=== PATIENT | female | born 1985 | race Caucasian/White ===

== ENCOUNTER 2016-05-30 18:32 | Emergency (ER) | payer BC ==
[2016-05-30 19:33] VITALS: BP 135/85
--- NOTE | 2016-05-30 19:58 | UC ---
Throat Pain/Nasal Jose HPI - HPI Summary HPI Summary: right ear pain radiating in to right side of throat began on an airline flight 5 days ago - History of Current Complaint Chief Complaint: UCRespiratory Stated Complaint: COUGH, SORE THROAT, AND SINUS CONGESTION Time Seen by Provider: 05/30/16 19:44 Hx Obtained From: Patient Hx Last Menstrual Period: 05/06/16 ?: No Onset/Duration: Sudden Onset, Lasting Days - 5, Still Present Severity: Moderate Pain Intensity: 5 Pain Scale Used: 0-10 Numeric Cough: None - Allergies/Home Medications Allergies/Adverse Reactions: Allergies Allergy/AdvReac Type Severity Reaction Status Date / Time No Known Allergies Allergy Verified 05/30/16 19:33 Home Medications: Home Medications NK [No Home Medications Reported] 05/30/16 [History Confirmed 05/30/16] PMH/Surg Hx/FS Hx/Imm Hx Previously Healthy: No Psychological History Of: Reports: Anxiety - Surgical History Surgical History: None - Family History Known Family History: Positive: None - Social History Occupation: Unemployed Lives: With Family Alcohol Use: None Substance Use Type: None Smoking Status (MU): Never Smoked Tobacco Have You Smoked in the Last Year: No - Immunization History Most Recent Influenza Vaccination: 01/12/15 Most Recent Tetanus Shot: 03/21/15 Most Recent Pneumonia Vaccination: never Review of Systems Constitutional: Negative Skin: Negative Eyes: Negative ENT: Sore Throat, Ear Ache Respiratory: Cough Cardiovascular: Negative Gastrointestinal: Negative Genitourinary: Negative Motor: Negative Neurovascular: Negative Musculoskeletal: Negative Neurological: Negative Psychological: Negative All Other Systems Reviewed And Are Negative: Yes Physical Exam Triage Information Reviewed: Yes Appearance: Well-Appearing, No Pain Distress, Well-Nourished Vital Signs: Initial Vital Signs Temp 97.3 F 05/30/16 19:27 Pulse 158 05/30/16 19:27 Resp 20 05/30/16 19:27 BP 135/85 05/30/16 19:27 Pulse Ox 100 05/30/16 19:27 Vital Signs Reviewed: Yes Eye Exam: Normal Eyes: Positive: Conjunctiva Clear ENT Exam: Normal ENT: Positive: Hearing grossly normal, Pharynx normal, Nasal congestion, TMs normal - after cerumen removed from right ear. Negative: Nasal drainage, Tonsillar swelling, Tonsillar exudate, Trismus, Muffled/hoarse voice Dental Exam: Normal Neck exam: Normal Neck: Positive: Supple, Nontender, No Lymphadenopathy Respiratory Exam: Normal Respiratory: Positive: Chest non-tender, Lungs clear, Normal breath sounds, No respiratory distress, No accessory muscle use Cardiovascular Exam: Normal Cardiovascular: Positive: RRR, No Murmur, Pulses Normal, Brisk Capillary Refill Musculoskeletal Exam: Normal Musculoskeletal: Positive: Strength Intact, ROM Intact, No Edema Neurological Exam: Normal Neurological: Positive: Alert, Muscle Tone Normal Psychological Exam: Normal Skin Exam: Normal Diagnostics - Laboratory Diagnostic Studies Completed/Ordered: RST (-), Influenza A/B (-) Throat Pain/Nasal Course/Dx - Course Assessment/Plan: increase fluids, sudafed mucinex, cool mist humidifer, follow with pcp prn - Differential Dx/Diagnosis Differential Diagnosis/HQI/PQRI: Laryngitis, Peritonsillar Abscess, Pharyngitis , Sinusitis, URI Provider Diagnoses: URI, Eustation tube dysfunction Discharge - Discharge Plan Condition: Stable Disposition: HOME Patient Education Materials: Ibuprofen (By mouth), Pseudoephedrine (By mouth), Eustachian Tube Dysfunction (GEN) Referrals: Diane Hunter MD [Primary Care Provider] - If Needed
== END 2016-05-30 20:09 | disposition home or self-care (01) ==
LOC: UCEAST 18:32
DX: H92.01 Otalgia, right ear (principal); J06.9 Acute upper respiratory infection, unspecified; H69.91 Unspecified Eustachian tube disorder, right ear
CPT/HCPCS: 87502; 87651; 99211; G0463

== ENCOUNTER 2016-12-08 10:17 | Emergency (ER) | payer BC ==
[2016-12-08 10:31] VITALS: BP 145/95
--- NOTE | 2016-12-08 11:28 | UC ---
UC General HPI - HPI Summary HPI Summary: Patient presents to the clinic with complaints of generalized fatigue, malaise with reported tactile fever and chills. She complains of scratchy sore throat, and bilateral ear pain. She feels like her ears are plugged. She states that she has wax in her ears, and has to have them flushed out at times. She denies abdominal pain, nausea, vomiting or diarrhea. She reports ill contact with her child last week who had a virus. - History of Current Complaint Chief Complaint: UCEar Stated Complaint: EAR PAIN Time Seen by Provider: 12/08/16 10:54 Hx Obtained From: Patient Hx Last Menstrual Period: 12/08/16 Onset/Duration: Sudden Onset, Lasting Days Timing: Constant Onset Severity: Mild Current Severity: Mild Associated Signs & Symptoms: Positive: Fever Similar Episode/Dx as: cerumen impaction - Allergy/Home Medications Allergies/Adverse Reactions: Allergies Allergy/AdvReac Type Severity Reaction Status Date / Time No Known Allergies Allergy Verified 05/30/16 19:33 PMH/Surg Hx/FS Hx/Imm Hx Previously Healthy: Yes - Surgical History Surgical History: None - Family History Known Family History: Positive: None - Social History Occupation: Employed Full-time Lives: With Family Alcohol Use: None Substance Use Type: None Smoking Status (MU): Never Smoked Tobacco Have You Smoked in the Last Year: No - Immunization History Most Recent Influenza Vaccination: 01/12/15 Most Recent Tetanus Shot: 03/21/15 Most Recent Pneumonia Vaccination: never Review of Systems Constitutional: Fever, Chills, Fatigue ENT: Sore Throat, Ear Ache Cardiovascular: Negative Gastrointestinal: Negative Genitourinary: Negative Motor: Negative All Other Systems Reviewed And Are Negative: Yes Physical Exam Triage Information Reviewed: Yes Appearance: Well-Appearing Vital Signs: Initial Vital Signs Temp 100.8 F 12/08/16 10:27 Pulse 148 12/08/16 10:27 Resp 18 12/08/16 10:27 BP 145/95 12/08/16 10:27 Pulse Ox 100 12/08/16 10:27 Vital Signs Reviewed: Yes Eye Exam: Normal ENT: Positive: Other: - bilateral cerumen visualized, soft brown. Neck exam: Normal Respiratory Exam: Normal Cardiovascular Exam: Normal Skin Exam: Normal Course/Dx - Course Course Of Treatment: Patient presents with complaints of one day onset fatigue, and malaise, with reported fever, and chills. VS were normal. There was cerumen in both canals, and the ear were lavaged with excellent results and reported immediate improvement with her hearing back to normal. Other symptoms are consistent with viral syndrome for which conservative measure are to be imployed. She was encouraged to rest, push fluids, and take tylenol, and or advil as directed. If for any reason her symtpoms do not improve as anticipated she is to follow up with her PCP, or return for re-evalaution. she vervbalized understanding and was in agreement with the discharge plan. - Differential Dx - Multi-Symptom Differential Diagnoses: Other - viral syndrome cerumen impaction ear lavage Provider Diagnoses: viral syndrome. ceruemen impaction Discharge - Discharge Plan Condition: Stable Disposition: HOME Patient Education Materials: Cerumen Impaction (ED), Viral Syndrome (ED) Referrals: Diane Hunter MD [Primary Care Provider] -
== END 2016-12-08 11:32 | disposition home or self-care (01) ==
LOC: UCEAST 10:17
DX: H61.23 Impacted cerumen, bilateral (principal); B34.9 Viral infection, unspecified
CPT/HCPCS: 99213; G0463

== ENCOUNTER 2017-04-30 12:12 | Emergency (ER) | payer BC ==
[2017-04-30 12:40] VITALS: BP 143/82
--- NOTE | 2017-04-30 13:55 | UC ---
Ear Complaint HPI - HPI Summary HPI Summary: ONSET OF LEFT EAR PAIN AND DECREASED HEARING THIS MORNING. PT PRODUCES A LOT OF EAR WAX SO PUT DEBROX IN LESS THAN 2 HOURS AGO BUT DID NOT HELP SO HERE FOR EVAL. ALSO HAS HAD 4 DAYS OF COUGH, CONGESTION, SINUS PRESSURE. AND DAUGHTER BOTH HAVE RSV. 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 - Hx Last Menstrual Period: 04/14/17 Onset/Duration: Gradual Onset, Lasting Hours, Still Present Severity Initially: Moderate Severity Currently: Moderate Pain Intensity: 2 Pain Scale Used: 0-10 Numeric Aggravating Factors: Nothing Alleviating Factors: Nothing Associated Signs/Symptoms: Positive: Hearing Loss, URI Symptoms - Allergies/Home Medications Allergies/Adverse Reactions: Allergies Allergy/AdvReac Type Severity Reaction Status Date / Time No Known Allergies Allergy Verified 04/30/17 12:40 Home Medications: Home Medications Dextromethorphan-Phenylephrine [Day-Time Cold/Flu Relief 10-5-325 mg/15Ml] 1 liq PO DAILY PRN 04/30/17 [History Confirmed 04/30/17] GuaiFENesin DM* [Robitussin DM*] 10 ml PO Q6H PRN 04/30/17 [History Confirmed ] Loratadine [Claritin 10 MG CAP] 10 mg PO DAILY 04/30/17 [History Confirmed 04/30] PMH/Surg Hx/FS Hx/Imm Hx Previously Healthy: Yes - Surgical History Surgical History: None - Family History Known Family History: Positive: Hypertension - Social History Alcohol Use: None Substance Use Type: None Smoking Status (MU): Never Smoked Tobacco Have You Smoked in the Last Year: No - Immunization History Most Recent Influenza Vaccination: 01/12/15 Most Recent Tetanus Shot: 03/21/15 Most Recent Pneumonia Vaccination: never Review of Systems Constitutional: Fatigue ENT: Ear Ache, Nasal Discharge Respiratory: Cough Cardiovascular: Negative Gastrointestinal: Negative All Other Systems Reviewed And Are Negative: Yes Physical Exam Triage Information Reviewed: Yes Appearance: Well-Appearing, No Pain Distress, Well-Nourished Vital Signs: Initial Vital Signs Temp 98.5 F 04/30/17 12:35 Pulse 105 04/30/17 12:35 Resp 16 04/30/17 12:35 BP 143/82 04/30/17 12:35 Pulse Ox 100 04/30/17 12:35 Vital Signs Reviewed: Yes Eyes: Positive: Conjunctiva Clear ENT: Positive: Hearing grossly normal, Pharynx normal, Nasal congestion, Other - BILAT EACS IMPACTED WITH CERUMEN. AFTER CURETTAGE - RIGHT TM NORMAL. LEFT TM ERYTHEMATOUS AND DULL. Neck: Positive: Supple, Nontender, No Lymphadenopathy Respiratory Exam: Normal Cardiovascular: Positive: Tachycardia Abdomen Description: Positive: Soft Musculoskeletal: Positive: No Edema Neurological: Positive: Alert Psychological: Positive: Age Appropriate Behavior Skin: Negative: rashes Ear Complaint Course/Dx - Course Course Of Treatment: EARS IRRIGATED BY RN AND THEN CURETTED SUCCESSFULLY BY MD. WILL TREAT LEFT AOM WITH AMOX. F/U NEEDED. - Differential Dx/Diagnosis Provider Diagnoses: 1. LEFT AOM. 2. BILATERAL CERUMEN IMPACTION Discharge - Discharge Plan Condition: Stable Disposition: HOME Prescriptions: Amoxicillin PO (*) [Amoxicillin 500 MG CAP*] 1,000 mg PO Q12H #40 cap Patient Education Materials: Cerumen Impaction (ED), Ear Infection (ED) Referrals: Diane Hunter MD [Primary Care Provider] - Additional Instructions: YOUR EAR CANALS ARE NOW CLEAR OF WAX. ONCE YOUR INFECTION HAS RESOLVED YOU MAY USE A QTIP TO GENTLY AND CAREFULLY CLEAN YOUR EARS EVERY COUPLE OF DAYS TO KEEP WAX FROM BUILDING UP. DO NOT INSERT THE QTIP ANY FURTHER THAN THE DEPTH OF THE COTTON SWAB. FOR MAINTENANCE, PUT SEVERAL DROPS OF OIL (MINERAL OIL, VEGETABLE OIL, OLIVE OIL , CANOLA OIL...) IN EACH EAR ONCE WEEKLY. THIS WILL HELP KEEP THE WAX SOFT AND WILL HOPEFULLY PREVENT BUILDUP IN THE FUTURE. IF CERUMEN BUILDUP STILL OCCURS IT WILL LIKELY BE EASIER TO IRRIGATE. CALL THE NUMBER BELOW FOR ASSISTANCE IN ESTABLISHING WITH A PCP An additional resource available to assist in finding the appropriate physician for your health care needs is the [facility] ([facility]). You may contact them by calling [phone].
== END 2017-04-30 15:04 | disposition home or self-care (01) ==
LOC: UCEAST 12:12
DX: H66.92 Otitis media, unspecified, left ear (principal); H61.23 Impacted cerumen, bilateral
CPT/HCPCS: 99213; G0463

== ENCOUNTER 2017-12-11 12:59 | Emergency (ER) | payer BC ==
[2017-12-11 13:11] VITALS: BP 147/66
--- NOTE | 2017-12-11 13:24 | UC ---
Ear Complaint HPI - HPI Summary HPI Summary: PATIENT HAD A URI 2 WEEKS AGO WHICH SHE RECOVERED FROM BUT HAS PERSISTENT RIGHT EAR DISCOMFORT AND MUTED HEARING. - History of Current Complaint Chief Complaint: UCEar Stated Complaint: EAR COMPLAINT Time Seen by Provider: 12/11/17 13:08 Hx Obtained From: Patient Hx Last Menstrual Period: NOV 26 Onset/Duration: Gradual Onset, Lasting Days, Still Present Severity Initially: Mild Severity Currently: Mild Pain Intensity: 2 Pain Scale Used: 0-10 Numeric Aggravating Factors: Nothing Alleviating Factors: Nothing Associated Signs/Symptoms: Positive: Hearing Loss, URI Symptoms. Negative: Discharge, Foreign Body Sensation - Allergies/Home Medications Allergies/Adverse Reactions: Allergies Allergy/AdvReac Type Severity Reaction Status Date / Time No Known Allergies Allergy Verified 04/30/17 12:40 Home Medications: Home Medications NK [No Home Medications Reported] 12/11/17 [History Confirmed 12/11/17] PMH/Surg Hx/FS Hx/Imm Hx Previously Healthy: Yes - Surgical History Surgical History: None - Family History Known Family History: Positive: Hypertension - Social History Alcohol Use: None Substance Use Type: None Smoking Status (MU): Never Smoked Tobacco Have You Smoked in the Last Year: No - Immunization History Most Recent Influenza Vaccination: 01/12/15 Most Recent Tetanus Shot: 03/21/15 Most Recent Pneumonia Vaccination: never Review of Systems Constitutional: Negative ENT: Ear Ache Respiratory: Negative Cardiovascular: Negative Gastrointestinal: Negative All Other Systems Reviewed And Are Negative: Yes Physical Exam Triage Information Reviewed: Yes Appearance: Well-Appearing, No Pain Distress, Well-Nourished Vital Signs: Initial Vital Signs Temp 98.9 F 12/11/17 13:06 Pulse 92 12/11/17 13:06 Resp 17 12/11/17 13:06 BP 147/66 12/11/17 13:06 Pulse Ox 100 12/11/17 13:06 Vital Signs Reviewed: Yes Eyes: Positive: Conjunctiva Clear ENT: Positive: Hearing grossly normal, Pharynx normal, TMs normal, Other - CERUMEN IMPACTION RIGHT EAC Neck: Positive: Supple Respiratory Exam: Normal Cardiovascular Exam: Normal Abdomen Description: Positive: Soft Musculoskeletal: Positive: No Edema Neurological: Positive: Alert Psychological: Positive: Normal Response To Family, Age Appropriate Behavior Skin: Negative: rashes Ear Complaint Course/Dx - Course Course Of Treatment: RIGHT EAR IRRIGATED BY RN. TM VISUALIZED AND NORMAL. PT FEELS BETTER. NO MEDS INDICATED. - Differential Dx/Diagnosis Provider Diagnoses: RIGHT EAR CERUMEN IMPACTION Discharge - Sign-Out/Discharge Documenting (check all that apply): Patient Departure All imaging exams completed and their final reports reviewed: No Studies - Discharge Plan Condition: Stable Disposition: HOME Patient Education Materials: Cerumen Impaction (ED) Referrals: Diane Hunter MD [Primary Care Provider] - If Needed Additional Instructions: NO EAR INFECTION ON EXAM TODAY. NOW THAT YOUR EAR CANALS ARE CLEAR OF WAX YOU MAY USE A QTIP TO GENTLY AND CAREFULLY CLEAN YOUR EARS ONCE OR TWICE A WEEK TO KEEP WAX FROM BUILDING UP. DO NOT INSERT THE QTIP ANY FURTHER THAN THE DEPTH OF THE COTTON SWAB. - Billing Disposition and Condition Condition: STABLE Disposition: Home
== END 2017-12-11 14:10 | disposition home or self-care (01) ==
LOC: UCEAST 12:59
DX: H61.21 Impacted cerumen, right ear (principal); Z86.19 Personal history of other infectious and parasitic diseases
CPT/HCPCS: 99212; G0463

== ENCOUNTER 2018-10-10 10:27 | Emergency (ER) | payer BC, OTHER ==
[2018-10-10 10:40] VITALS: BP 142/83
--- NOTE | 2018-10-10 12:11 | UC ---
UC General HPI - HPI Summary HPI Summary: 33-year-old female who is here today because of anxiety. She states since she was in 2014 she has had some periods of anxiety. She had a normal vaginal delivery without complications and the child is 3 years old with no problems. She states since then she will have times when she just feels very anxious and worried about normal life events. She states over the past month she feels like she's been having more problems with panic attacks although no real source for those attacks. She has a healthy marriage and a good relation with her she states. She does not go to her [facility] regularly because of fear that the doctor might find something wrong so she just doesn't go. She states she gets anxious just being in a doctor's office. She denies any recent illness. - History of Current Complaint Chief Complaint: UCPsych Stated Complaint: ANXIETY ISSUE Time Seen by Provider: 10/10/18 11:39 Hx Obtained From: Patient - I spoke with the patient by herself while her waited in the waiting room. Hx Last Menstrual Period: NOV 26 Onset/Duration: Gradual Onset, Other - Has had intermittent episodes of anxiety since 2014. Onset Severity: Mild Current Severity: Mild Pain Intensity: 0 - Allergy/Home Medications Allergies/Adverse Reactions: Allergies Allergy/AdvReac Type Severity Reaction Status Date / Time No Known Allergies Allergy Verified 10/10/18 10:40 PMH/Surg Hx/FS Hx/Imm Hx Previously Healthy: Yes - she states her mother has a history of anxiety. - Surgical History Surgical History: None - Family History Known Family History: Positive: Hypertension - Social History Lives: With Family Alcohol Use: None Substance Use Type: None Smoking Status (MU): Never Smoked Tobacco Have You Smoked in the Last Year: No - Immunization History Most Recent Influenza Vaccination: 01/12/15 Most Recent Tetanus Shot: 03/21/15 Most Recent Pneumonia Vaccination: never Review of Systems All Other Systems Reviewed And Are Negative: Yes Psychological: Positive: Anxious Is Patient Immunocompromised?: No Physical Exam Triage Information Reviewed: Yes Appearance: Well-Appearing, No Pain Distress, Well-Nourished Vital Signs: Initial Vital Signs Temp 98.7 F 10/10/18 10:33 Pulse 120 10/10/18 10:33 Resp 24 10/10/18 10:33 BP 142/83 10/10/18 10:33 Pulse Ox 100 10/10/18 10:33 Vital Signs Reviewed: Yes Eyes: Positive: Conjunctiva Clear - PERRLA, EOMI ENT: Positive: Hearing grossly normal, Pharynx normal, TMs normal, Uvula midline Neck: Positive: Supple, Nontender, No Lymphadenopathy Respiratory: Positive: Lungs clear, Normal breath sounds, No respiratory distress, No accessory muscle use Cardiovascular: Positive: RRR, No Murmur, Pulses Normal, Brisk Capillary Refill Abdomen Description: Positive: Nontender, No Organomegaly, Soft. Negative: CVA Tenderness (R), CVA Tenderness (L) Bowel Sounds: Positive: Present Musculoskeletal: Positive: Strength Intact, ROM Intact - Good peripheral pulses neuro sensation capillary refill, reflexes +2 at the knee, full range of motion , good arm and leg strength against resistance. Neurological: Positive: Alert, Muscle Tone Normal Psychological: Positive: Normal Response To Family, Other: - Patient seemed very calm here well and was talking with her. I think she needed more reassurance that many of the worries that she has are fairly normal. Skin Exam: Normal Course/Dx - Course Course Of Treatment: Patient has been comfortable here. She needed reassurance that many of the worrying that she does about normal life events is normal. She states she has no primary care provider therefore I gave her the [facility] pamphlet to follow-up there and they will be able to find her a primary care provider who can address her anxiety. At this point in time she is very calm with no complaints. She states she mostly came because she thought she could have a physical exam and then that would allay her fears. I did stress the importance of regular [facility] appointments and Pap smears as well as establishing care with a primary care provider. She is agreeable to this. She is not suicidal nor she homicidal. She states she is very happy in her marriage and with her child. She has a brother visiting from [place] for about 3 weeks. The patient seemed very reassured and happy with the talk we had and the information given. - Diagnoses Provider Diagnosis: Anxiety about health Discharge - Sign-Out/Discharge Documenting (check all that apply): Patient Departure All imaging exams completed and their final reports reviewed: No Studies - Discharge Plan Condition: Good Disposition: HOME Patient Education Materials: Anxiety (ED) Referrals: [facility] [Outside] Diane Hunter MD [Primary Care Provider] - Additional Instructions: Call the [facility] clinic today to make an appointment to establish care with a primary care provider. - Billing Disposition and Condition Condition: GOOD Disposition: Home
== END 2018-10-10 12:15 | disposition home or self-care (01) ==
LOC: UCEAST 10:27
DX: F41.9 Anxiety disorder, unspecified (principal)
CPT/HCPCS: 99211; G0463

== ENCOUNTER 2019-03-11 20:06 | Emergency (ER) | payer OTHER ==
[2019-03-11 20:24] VITALS: BP 176/98
--- NOTE | 2019-03-11 20:31 | UC ---
Dizzy HPI HPI Summary: AFTER GETTING HOME FROM WORK THIS AFTERNOON PATIENT SUDDENLY FELT VERY DIZZY, NAUSEATED AND INTERMITTENTLY SHORT OF BREATH. FELT SHE COULDN'T EVEN WALK SHE WAS FEELING SO DIZZY. SHE DOES HAVE SOME UNDERLYING ANXIETY AND IS CURRENTLY BEING TREATED FOR HYPERTHYROIDISM WITH METHIMAZOLE AND A BETA RODRIGO. 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 - Hx Last Menstrual Period: NOV 26 Onset/Duration: Sudden Onset, Lasting Hours, Still Present Timing: Constant Severity Initially: Moderate Severity Currently: Moderate Pain Intensity: 0 Pain Scale Used: 0-10 Numeric Character: Lightheaded, Weak, Dizzy Aggravating Factor(s): Nothing Alleviating Factor(s): Nothing Associated Signs And Symptoms: Positive: Nausea, SOB, Unsteady Gait - Allergies/Home Medications Allergies/Adverse Reactions: Allergies Allergy/AdvReac Type Severity Reaction Status Date / Time No Known Allergies Allergy Verified 10/10/18 10:40 Home Medications: Home Medications Atenolol TAB* [Tenormin TAB* 25 MG] 1 tab PO DAILY 03/11/19 [History Confirmed 03/11/19] methIMAzole [Methimazole] 40 mg PO DAILY 03/11/19 [History Confirmed 03/11/19] PMH/Surg Hx/FS Hx/Imm Hx Endocrine History: Hyperthyroidism - Surgical History Surgical History: None - Family History Known Family History: Positive: Hypertension - Social History Alcohol Use: None Substance Use Type: None Smoking Status (MU): Never Smoked Tobacco Have You Smoked in the Last Year: No - Immunization History Most Recent Influenza Vaccination: 01/12/15 Most Recent Tetanus Shot: 03/21/15 Most Recent Pneumonia Vaccination: never Review of Systems All Other Systems Reviewed And Are Negative: Yes Constitutional: Positive: Fatigue Respiratory: Positive: Shortness Of Breath Cardiovascular: Positive: Negative Gastrointestinal: Positive: Nausea Neurological: Positive: Other - DIZZY Physical Exam Triage Information Reviewed: Yes Appearance: No Pain Distress, Well-Nourished, Other: - SEEMS SEDATED Vital Signs: Initial Vital Signs Temp 98 F 03/11/19 20:21 Pulse 100 03/11/19 20:21 Resp 18 03/11/19 20:21 BP 176/98 03/11/19 20:21 Pulse Ox 100 03/11/19 20:21 Vital Signs Reviewed: Yes Eyes: Positive: Conjunctiva Clear ENT: Positive: Hearing grossly normal Neck: Positive: Supple Respiratory Exam: Normal Cardiovascular Exam: Normal Abdomen Description: Positive: Nontender, Soft Musculoskeletal: Positive: No Edema Neurological: Positive: Alert, Fatigued Psychological: Positive: Age Appropriate Behavior Skin: Negative: Rashes Diagnostics - EKG Cardiac Rate: NL - 69BPM Cardiac Rhythm: Sinus: Normal Ectopy: None ST Segment: Normal Dizzy Course/Dx - Course Course Of Treatment: PATIENT REQUIRES A HIGHER LEVEL OF SERVICE THAN WHAT IS AVAILABLE IN THE URGENT CARE. TO [facility] BY AMBULANCE. - Differential Dx/Diagnosis Provider Diagnosis: Dizziness - Physician Notifications Discussed Patient Care With: Sara George - TO [facility] BY AMBULANCE Time Discussed With Above Provider: 20:30 Discharge ED - Sign-Out/Discharge Documenting (check all that apply): Patient Departure All imaging exams completed and their final reports reviewed: No Studies - Discharge Plan Condition: Stable Disposition: TRANS HIGHER LVL OF CARE FAC Patient Education Materials: Dizziness (ED) Referrals: Diane Hunter MD [Primary Care Provider] - - Billing Disposition and Condition Condition: STABLE Disposition: Trans Higher Lvl of Care Fac
== END 2019-03-11 20:50 | disposition short-term general hospital (02) ==
LOC: UCEAST 20:06
DX: R42 Dizziness and giddiness (principal); R11.0 Nausea; R06.02 Shortness of breath; F41.9 Anxiety disorder, unspecified; E05.90 Thyrotoxicosis, unspecified without thyrotoxic crisis or storm; Z79.899 Other long term (current) drug therapy
CPT/HCPCS: 93005; 99213; G0463

== ENCOUNTER 2019-03-11 21:09 | Emergency (ER) | payer OTHER ==
[2019-03-11] MEDS ORDERED: NS 0.9% 1000 ML** 1,000 ML IV ONE (21:18)
[2019-03-11] MEDS ORDERED: Ondansetron INJ* 2 MG/ML VIAL IV ONE (21:18)
[2019-03-11 21:38] LABS: INR 1.09 (0.82-1.09)
[2019-03-11 21:47] LABS: Alcohol < 10 mg/dL (<10)
[2019-03-11 21:48] LABS: ALT 17 U/L (7-52); AST 17 U/L (13-39); Albumin/Globulin Ratio 1.1 (1-3); Alkaline Phosphatase 84 U/L (34-104); Anion Gap 8 mmol/L (2-11); BUN/Creatinine Ratio 11.1 (8-20); Blood Urea Nitrogen 7 mg/dL (6-24); CO2 Carbon Dioxide 21 mmol/L (22-32); Calcium 8.6 mg/dL (8.6-10.3); Chloride 108 mmol/L (101-111); EGFR African American 130.1 (>60); EGFR Non-African American 107.5 (>60); Globulin 3.7 g/dL (2-4); Glucose 161 mg/dL (70-100); Magnesium 1.9 mg/dL (1.9-2.7); Potassium 3.4 mmol/L (3.5-5.0); Sodium 137 mmol/L (135-145); Total Protein 7.7 g/dL (6.4-8.9)
[2019-03-11 21:50] LABS: ABS Basophils 0.1 10^3/ul (0-0.2); ABS Lymphocytes 2.2 10^3/ul (1.0-4.8); ABS Monocytes 0.6 10^3/ul (0-0.8); Eosinophil % 0.3 %; Hematocrit 34 % (35-47); Hemoglobin 11.7 g/dL (12.0-16.0); Lymphocyte % 20.6 %; Mean Corpuscular HGB Conc 34 g/dL (31-36); Mean Corpuscular Hemoglobin 26 pg (27-31); Mean Corpuscular Volume 76 fL (80-97); Platelet Count 280 10^3/uL (150-450); Red Blood Count 4.51 10^6 /uL (3.70-4.87); Red Cell Distribution Width 15 % (10-15); White Blood Count 10.9 10^3/uL (3.5-10.8)
[2019-03-11 21:51] LABS: Urine Appearance Clear; Urine Bilirubin Negative (Negative); Urine Blood 1+ (Negative); Urine Color Straw; Urine Glucose Negative (Negative); Urine Ketones Negative (Negative); Urine Nitrite Negative (Negative); Urine Protein Negative (Negative); Urine Specific Gravity 1.002 (1.010-1.030); Urine Urobilinogen Negative (Negative)
[2019-03-11 21:54] LABS: HCG Pregnancy < 0.60 mIU/mL
[2019-03-11 21:58] LABS: Urine Bacteria 1+ (Absent); Urine Red Blood Cell Trace(0-2/hpf) (Absent); Urine Squamous Epithelial Cell Present (Absent); Urine White Blood Cell Trace(0-5/hpf) (Absent)
[2019-03-11 22:03] LABS: TSH (Thyroid Stimulating Horm) 0.01 mcIU/mL (0.34-5.60)
--- NOTE | 2019-03-11 22:09 | ED ---
Dizziness - HPI Summary HPI Summary: Pt is a 34 y/o F presenting to the ED with a chief complaint of dizziness. She states she has hyperthyroidism and has been taking Atenolol for these types of spells. She had dizziness onset tonight, took Atenolol, rested for 30 minutes, and the dizziness was still present. Her BP was elevated, and the pt became very anxious and slightly SOB. They went to . She denies fever or dec. appetite. - History Of Current Complaint Chief Complaint: EDDizziness Stated Complaint: DIZZINESS/SOB PER EMS Time Seen by Provider: 03/11/19 21:17 Hx Obtained From: Patient Onset/Duration: Still Present, Gradually Timing: Hours Severity Initially: Moderate Severity Currently: Mild Character: Lightheaded, Dizzy Aggravating Factor(s): Nothing Alleviating Factor(s): Nothing Associated Signs And Symptoms: Positive: SOB, Other: - htn, anxiety. Negative: Fever - Allergies/Home Medications Allergies/Adverse Reactions: Allergies Allergy/AdvReac Type Severity Reaction Status Date / Time No Known Allergies Allergy Verified 10/10/18 10:40 Home Medications: Home Medications Methimazole TAB* [Tapazole TAB*] 40 mg PO DAILY 03/11/19 [History Confirmed 02/17] PMH/Surg Hx/FS Hx/Imm Hx Previously Healthy: Yes Endocrine/Hematology History: Reports: Hx Thyroid Disease - hyperthyroid Cardiovascular History: Denies: Hx Hypertension Respiratory History: Denies: Hx Chronic Obstructive Pulmonary Disease (COPD) GI History: Denies: Hx Ulcer Psychiatric History: Reports: Hx Anxiety Infectious Disease History: No Infectious Disease History: Denies: Hx Human Immunodeficiency Virus (HIV), Traveled Outside the [place] in Last 30 Days - Family History Known Family History: Positive: Hypertension - Social History Alcohol Use: None Hx Substance Use: No Substance Use Type: Reports: None Hx Tobacco Use: No Smoking Status (MU): Never Smoked Tobacco Have You Smoked in the Last Year: No Review of Systems - ROS Summary Review of Systems Summary: Home Medications Medication Instructions Recorded Confirmed Type Atenolol TAB* [Tenormin TAB* 25 MG] 25 mg PO DAILY 03/11/19 03/11/19 History Methimazole TAB* [Tapazole TAB*] 40 mg PO DAILY 03/11/19 03/11/19 History Constitutional: Other - HTN Negative: Fever, Other - dec. appetite Positive: Shortness Of Breath Neurological: Other - dizziness Positive: Anxious All Other Systems Reviewed And Are Negative: Yes Physical Exam - Summary Physical Exam Summary: General: Obese female. No acute distress. HEENT: Normocephalic, Atraumatic. Eyes: Conjuctiva normal, PERRL. Oropharynx: Clear, mucous membranes moist, (-) exudates. Neck: Soft, FROM, (-) lymphadenopathy, (-) thyromegaly, (-) JVD. Cardiovascular: Normal sinus rhythm, (-) murmur. Lungs: Clear to auscultation bilaterally (-) wheezes, (-) rales, (-) rhonchi. Abdomen: Soft, non-tender, non-distended, (-) organomegaly, normal bowel sounds. Back: (-) CVA tenderness Extremities: No edema. Skin: Warm, dry, (-) rash. Neuro: Alert and oriented x3, no focal deficits. Psychiatric: Mildly anxious appearing Triage Information Reviewed: Yes Vital Signs On Initial Exam: Initial Vitals Temp Pulse Resp BP Pulse Ox 99.4 F 64 18 131/85 100 03/11/19 21:17 03/11/19 21:17 03/11/19 21:17 03/11/19 21:17 03/11/19 21:17 Vital Signs Reviewed: Yes Procedures - Sedation Patient Received Moderate/Deep Sedation with Procedure: No Diagnostics - Vital Signs Vital Signs Temp Pulse Resp BP Pulse Ox 03/11/19 21:17 99.4 F 64 18 131/85 100 - Laboratory Lab Results: Lab Results 03/11/19 03/11/19 03/11/19 Range/Units 20:40 20:40 21:35 WBC (3.5-10.8) 10^3/uL RBC (3.70-4.87) 10^6 /uL Hgb (12.0-16.0) g/dL Hct (35-47) % MCV (80-97) fL MCH (27-31) pg MCHC (31-36) g/dL RDW (10-15) % Plt Count (150-450) 10^3/uL MPV (7.4-10.4) fL Neut % (Auto) % Lymph % (Auto) % [place] % (Auto) % Eos % (Auto) % Baso % (Auto) % Absolute Neuts (auto) (1.5-7.7) 10^3/ul Absolute Lymphs (auto) (1.0-4.8) 10^3/ul Absolute Monos (auto) (0-0.8) 10^3/ul Absolute Eos (auto) (0-0.6) 10^3/ul Absolute Basos (auto) (0-0.2) 10^3/ul Absolute Nucleated RBC 10^3/ul Nucleated RBC % INR (Anticoag Therapy) 1.09 (0.82-1.09) Sodium 137 (135-145) mmol/L Potassium 3.4 L (3.5-5.0) mmol/L Chloride 108 (101-111) mmol/L Carbon Dioxide 21 L (22-32) mmol/L Anion Gap 8 (2-11) mmol/L BUN 7 (6-24) mg/dL Creatinine 0.63 (0.51-0.95) mg/dL Est GFR ( Amer) 130.1 (>60) Est GFR (Non-Af Amer) 107.5 (>60) BUN/Creatinine Ratio 11.1 (8-20) Glucose 161 H (70-100) mg/dL Calcium 8.6 (8.6-10.3) mg/dL Magnesium 1.9 (1.9-2.7) mg/dL Total Bilirubin 0.40 (0.2-1.0) mg/dL AST 17 (13-39) U/L ALT 17 (7-52) U/L Alkaline Phosphatase 84 (34-104) U/L Troponin I 0.00 (<0.03) ng/mL Total Protein 7.7 (6.4-8.9) g/dL Albumin 4.0 (3.2-5.2) g/dL Globulin 3.7 (2-4) g/dL Albumin/Globulin Ratio 1.1 (1-3) TSH 0.01 L (0.34-5.60) mcIU/mL Beta HCG, Quant < 0.60 mIU/mL Urine Color Straw Urine Appearance Clear Urine pH 6.0 (5-9) Ur Specific [place] 1.002 L (1.010-1.030) Urine Protein Negative (Negative) Urine Ketones Negative (Negative) Urine Blood 1+ A (Negative) Urine Nitrate Negative (Negative) Urine Bilirubin Negative (Negative) Urine Urobilinogen Negative (Negative) Ur Leukocyte Esterase Trace A (Negative) Urine WBC (Auto) Trace(0-5/hpf) (Absent) Urine RBC (Auto) Trace(0-2/hpf) (Absent) Ur Squamous Epith Cells Present A (Absent) Urine Bacteria 1+ A (Absent) Urine Glucose Negative (Negative) Serum Alcohol < 10 (<10) mg/dL 03/11/19 Range/Units 21:45 WBC 10.9 H (3.5-10.8) 10^3/uL RBC 4.51 (3.70-4.87) 10^6 /uL Hgb 11.7 L (12.0-16.0) g/dL Hct 34 L (35-47) % MCV 76 L (80-97) fL MCH 26 L (27-31) pg MCHC 34 (31-36) g/dL RDW 15 (10-15) % Plt Count 280 (150-450) 10^3/uL MPV 9.0 (7.4-10.4) fL Neut % (Auto) 73.1 % Lymph % (Auto) 20.6 % [place] % (Auto) 5.5 % Eos % (Auto) 0.3 % Baso % (Auto) 0.5 % Absolute Neuts (auto) 8.0 H (1.5-7.7) 10^3/ul Absolute Lymphs (auto) 2.2 (1.0-4.8) 10^3/ul Absolute Monos (auto) 0.6 (0-0.8) 10^3/ul Absolute Eos (auto) 0.0 (0-0.6) 10^3/ul Absolute Basos (auto) 0.1 (0-0.2) 10^3/ul Absolute Nucleated RBC 0.0 10^3/ul Nucleated RBC % 0.0 INR (Anticoag Therapy) (0.82-1.09) Sodium (135-145) mmol/L Potassium (3.5-5.0) mmol/L Chloride (101-111) mmol/L Carbon Dioxide (22-32) mmol/L Anion Gap (2-11) mmol/L BUN (6-24) mg/dL Creatinine (0.51-0.95) mg/dL Est GFR ( Amer) (>60) Est GFR (Non-Af Amer) (>60) BUN/Creatinine Ratio (8-20) Glucose (70-100) mg/dL Calcium (8.6-10.3) mg/dL Magnesium (1.9-2.7) mg/dL Total Bilirubin (0.2-1.0) mg/dL AST (13-39) U/L ALT (7-52) U/L Alkaline Phosphatase (34-104) U/L Troponin I (<0.03) ng/mL Total Protein (6.4-8.9) g/dL Albumin (3.2-5.2) g/dL Globulin (2-4) g/dL Albumin/Globulin Ratio (1-3) TSH (0.34-5.60) mcIU/mL Beta HCG, Quant mIU/mL Urine Color Urine Appearance Urine pH (5-9) Ur Specific Winston (1.010-1.030) Urine Protein (Negative) Urine Ketones (Negative) Urine Blood (Negative) Urine Nitrate (Negative) Urine Bilirubin (Negative) Urine Urobilinogen (Negative) Ur Leukocyte Esterase (Negative) Urine WBC (Auto) (Absent) Urine RBC (Auto) (Absent) Ur Squamous Epith Cells (Absent) Urine Bacteria (Absent) Urine Glucose (Negative) Serum Alcohol (<10) mg/dL Result Diagrams: 03/11/19 21:45 03/11/19 20:40 Lab Statement: Any lab studies that have been ordered have been reviewed, and results considered in the medical decision making process. - EKG 2123 Cardiac Rate: NL - 61bpm EKG Rhythm: Sinus Rhythm ST Segment: Normal Ectopy: None Summary of EKG Findings: EKG at 2123 reveals normal sinus rhythm with rate of 61 BPM, no acute changes, no ischemic changes. This EKG was reviewed and interpreted by Dr. Shane. Re-Evaluation - Re-Evaluation 1st re-eval Re-Evaluation Time: 22:37 Change: Improved Comment: I have discussed results with the patient and dizziness is resolved. Discussed symptoms that warrant immediate return to ED. Dizzy Course/Dx - Course Course Of Treatment: 34 y/o F presents by ambulance from urgent care w/ dizziness. Pt with significant dizziness today not relieved by rest. Recently dx ed with hyperthyroidism, started on Atenolol. Pt took an extra atenolol tonight [employer]. Given 25mg Atenolol, nml saline, 4mg Zofran, and 40mg Methimazole w / significant improvement in sx. Workup essentially negative aside from low TSH. Pt d/nelly home. F/u with PCP for new or worsening sx. - Diagnoses Provider Diagnoses: Dizziness Discharge ED - Sign-Out/Discharge Documenting (check all that apply): Patient Departure - Discharge Plan Condition: Stable Disposition: HOME Patient Education Materials: Dizziness (ED) Referrals: Diane Hunter MD [Primary Care Provider] - Additional Instructions: Please follow up with your primary care physician within three days. Please return to ED for any new or worsening symptoms. - Billing Disposition and Condition Condition: STABLE Disposition: Home - Attestation Statements Document Initiated by Jhonny: Yes Documenting Scribe: Josefina Alfaro Provider For Whom Jhonny is Documenting (Include Credential): Ольга Shane MD. Scribe Attestation: Josefina Wilks, nanoibed for Ольга Shane MD. on 03/11/19 at 2326. Scribe Documentation Reviewed: Yes Provider Attestation: The documentation as recorded by the scribeJosefina accurately reflects the service I personally performed and the decisions made by Ольга wolff MD. Status of Scribe Document: Viewed
[2019-03-11 22:50] VITALS: BP 128/86
[2019-03-12] MEDS ORDERED: Methimazole TAB* 5 MG PO SCH (09:00)
[2019-03-12] MEDS ORDERED: Atenolol TAB* 25 MG PO SCH (09:00)
== END 2019-03-11 22:41 | disposition home or self-care (01) ==
LOC: ED 21:09
DX: R42 Dizziness and giddiness (principal); R06.02 Shortness of breath; I10 Essential (primary) hypertension; F41.9 Anxiety disorder, unspecified; E05.90 Thyrotoxicosis, unspecified without thyrotoxic crisis or storm; Z79.899 Other long term (current) drug therapy
CPT/HCPCS: 36415; 80053; 80320; 81003; 81015; 83605; 83735; 84443; 84484; 84702; 85025; 85610; 87086; 93005; 96360; 99282; G0480; J2405